=== PATIENT | male | born 1940 | race Caucasian/White ===

== ENCOUNTER 2019-08-23 15:53 | Emergency (ER) | payer OTHER ==
[~2019-08-23] VITALS: Ht 167.6 cm; Wt 77.1 kg
[2019-08-23 15:59] VITALS: BP_SYST 111
[2019-08-23] MEDS ORDERED: NACL 0.9% 1,000 ML IV ONE (16:32)
[2019-08-23 17:05] LABS: EOSINOPHILS # (AUTO) 0.1 K/uL (0.0-0.4); LYMPHOCYTES # (AUTO) 1.1 K/uL (1.0-5.5); MONOCYTES # (AUTO) 0.6 K/uL (0.0-1.0); PLATELET COUNT (AUTO) 190 K/uL (130-430)
[2019-08-23 17:08] LABS: ANION GAP 6 (5-15); CHLORIDE 102 mmol/L (98-107); CREATININE 0.99 mg/dL (0.55-1.30); GLUCOSE 95 mg/dL (70-99); POTASSIUM 3.5 mmol/L (3.5-5.1); SODIUM SERUM 136 mmol/L (136-145); UREA NITROGEN, BLOOD 20 mg/dL (8-21)
[2019-08-23 17:12] LABS: BASOPHILS % (AUTO) 0.4 % (0.0-2.0); EOSINOPHILS % (AUTO) 1.5 % (0.0-4.0); HEMATOCRIT 44.4 % (36-54); LYMPHOCYTES % (AUTO) 15.8 % (20.5-51.5); MEAN CORPUSCULAR HEMOGLOBIN 28 pg (27-31); MEAN CORPUSCULAR HGB CONC 34 % (32-36); MEAN CORPUSCULAR VOLUME 83 fL (79.0-98.0); NEUTROPHILS # (AUTO) 5.3 K/uL (1.8-7.7); NEUTROPHILS % (AUTO) 74.3 % (40.0-70.0); RED BLOOD CELL COUNT(AUTO) 5.37 MIL/uL (4.2-6.2); RED CELL DISTRIBUTION WIDTH 19.7 % (9.0-15.0); WHITE BLOOD COUNT (AUTO) 7.1 K/uL (4.8-10.8)
[2019-08-23 17:17] LABS: ALANINE AMINOTRANSFERASE 29 U/L (12-78); ALBUMIN 2.9 g/dL (3.4-4.8); ASPARTATE AMINOTRANSFERASE 20 U/L (10-37); TOTAL BILIRUBIN 1.7 mg/dL (0.0-1.0)
[2019-08-23] MEDS ORDERED: LISI-652 PO ×2 (17:38→17:41)
[2019-08-23] MEDS ORDERED: TAMS-11 PO (17:38)
[2019-08-23] MEDS ORDERED: APIX5TAB4 PO (17:38)
[2019-08-23] MEDS ORDERED: APIX5TAB PO (17:38)
[2019-08-23] MEDS ORDERED: NEBI10TA2 PO (17:41)
[2019-08-23] MEDS ORDERED: LEVO125T PO (17:41)
[2019-08-23 18:41] VITALS: BP_SYST 127
== END 2019-08-23 18:39 | disposition home or self-care (01) ==
LOC: SED 15:53
DX: R07.89 Other chest pain (principal); I48.91 Unspecified atrial fibrillation; I10 Essential (primary) hypertension; Z79.899 Other long term (current) drug therapy; Z87.891 Personal history of nicotine dependence
CPT/HCPCS: 36415; 71045; 74021; 80053; 84484; 85025; 93005; 99285

== ENCOUNTER 2020-01-09 10:02 | Observation (INO) | payer OTHER ==
[~2020-01-09] VITALS: Ht 170.2 cm; Wt 69.9 kg
[2020-01-09 10:02] VITALS: BP_SYST 131
[~2020-01-09 10:02] MED LIST: APIX5TAB PO; LEVO125T PO; LISI-652 PO; NEBI10TA2 PO; TAMS-11 PO
[2020-01-09] MEDS ORDERED: DILTIAZEM HCL 120 MG CAP.SR.24H PO ONE (10:15)
[2020-01-09 10:52] LABS: ANION GAP 9 (5-15); BASOPHILS % (AUTO) 0.4 % (0.0-2.0); CALCIUM 7.6 mg/dL (8.4-11.0); CHLORIDE 103 mmol/L (98-107); CREATININE 1.07 mg/dL (0.55-1.30); EOSINOPHILS # (AUTO) 0.1 K/uL (0.0-0.4); EOSINOPHILS % (AUTO) 1.3 % (0.0-4.0); GLUCOSE 116 mg/dL (70-99); HEMATOCRIT 45.4 % (36-54); HEMOGLOBIN 15.9 g/dL (14.0-18.0); LYMPHOCYTES # (AUTO) 1.2 K/uL (1.0-5.5); LYMPHOCYTES % (AUTO) 17.2 % (20.5-51.5); MEAN CORPUSCULAR HEMOGLOBIN 29 pg (27-31); MEAN CORPUSCULAR HGB CONC 35 % (32-36); MEAN CORPUSCULAR VOLUME 84 fL (79.0-98.0); MONOCYTES # (AUTO) 0.4 K/uL (0.0-1.0); MONOCYTES % (AUTO) 6.4 % (1.7-9.3); NEUTROPHILS # (AUTO) 5.2 K/uL (1.8-7.7); NEUTROPHILS % (AUTO) 74.7 % (40.0-70.0); PLATELET COUNT (AUTO) 177 K/uL (130-430); RED CELL DISTRIBUTION WIDTH 14.6 % (9.0-15.0); SODIUM SERUM 135 mmol/L (136-145); UREA NITROGEN, BLOOD 15 mg/dL (8-21)
[2020-01-09 10:56] LABS: ALANINE AMINOTRANSFERASE 18 U/L (12-78); ALBUMIN 2.9 g/dL (3.4-4.8); ASPARTATE AMINOTRANSFERASE 14 U/L (10-37); TOTAL BILIRUBIN 2.4 mg/dL (0.0-1.0)
[2020-01-09 11:04] LABS: POTASSIUM 2.7 mmol/L (3.5-5.1)
[2020-01-09] MEDS ORDERED: APIXABAN 2.5 MG TABLET PO ONE (11:15)
[2020-01-09] MEDS: POTASSIUM CHLORIDE 20 MEQ in 0.45% NACL 1,000 ML IV SCH (14:27)
[2020-01-09 14:31] VITALS: BP_SYST 146
[2020-01-09 16:00] VITALS: BP_SYST 135
[2020-01-09 20:00] VITALS: BP_SYST 125
[2020-01-09] MEDS ORDERED: APIXABAN 2.5 MG TABLET PO SCH (21:00)
[2020-01-09] MEDS: busPIRone HCL 5 MG TABLET PO SCH (21:43)
[2020-01-09] MEDS: TAMSULOSIN HCL 0.4 MG CAP PO SCH (21:44)
[2020-01-09] MEDS: APIXABAN 2.5 MG TABLET PO SCH (21:44)
[2020-01-09] MEDS: METOPROLOL TARTRATE 50 MG TABLET PO SCH (21:44)
[2020-01-09 23:14] LABS: BILIRUBIN,URINE NEGATIVE (NEGATIVE); BLOOD, URINE NEGATIVE (NEGATIVE); CLARITY/URINE CLEAR (CLEAR); COLOR,URINE YELLOW (YELLOW); GLUCOSE,URINE NEGATIVE (NEGATIVE); KETONES,URINE NEGATIVE (NEGATIVE); LEUKOCYTE ESTERASE ,URINE NEGATIVE (NEGATIVE); NITRITE, URINE NEGATIVE (NEGATIVE); PROTEIN URINE NEGATIVE (NEGATIVE); UROBILINOGEN,URINE 0.2 (0.2-1.0)
[2020-01-10] MEDS: POTASSIUM CHLORIDE 20 MEQ in 0.45% NACL 1,000 ML IV SCH ×2 (00:05→12:00)
[2020-01-10 01:29] VITALS: BP_SYST 94
[2020-01-10] MEDS ORDERED: LEVOTHYROXINE SODIUM 0.125 MG TABLET PO SCH (07:00)
[2020-01-10 07:40] LABS: ALANINE AMINOTRANSFERASE 17 U/L (12-78); ALBUMIN 2.7 g/dL (3.4-4.8); ANION GAP 5 (5-15); ASPARTATE AMINOTRANSFERASE 13 U/L (10-37); CALCIUM 7.8 mg/dL (8.4-11.0); CHLORIDE 101 mmol/L (98-107); CHOLESTEROL 133 mg/dL (<200); CREATININE 1.04 mg/dL (0.55-1.30); GLUCOSE 94 mg/dL (70-99); HDL CHOLESTEROL 34 mg/dL (>45); LDL CHOLESTEROL 72 mg/dL (<100); POTASSIUM 3.9 mmol/L (3.5-5.1); SODIUM SERUM 134 mmol/L (136-145); THYROID STIMULATING HORMONE 3.25 uIu/mL (0.34-4.82); TOTAL BILIRUBIN 1.9 mg/dL (0.0-1.0); TRIGLYCERIDES 158 mg/dL (30-150); UREA NITROGEN, BLOOD 16 mg/dL (8-21)
[2020-01-10 08:00] VITALS: BP_SYST 149
[2020-01-10] MEDS: TAMSULOSIN HCL 0.4 MG CAP PO SCH (08:08)
[2020-01-10] MEDS: busPIRone HCL 5 MG TABLET PO SCH (08:08)
[2020-01-10] MEDS: METOPROLOL TARTRATE 50 MG TABLET PO SCH (08:09)
[2020-01-10] MEDS: APIXABAN 2.5 MG TABLET PO SCH (08:12)
[2020-01-10 11:33] VITALS: BP_SYST 141
[2020-01-10 13:22] LABS: BILIRUBIN,URINE NEGATIVE (NEGATIVE); BLOOD, URINE NEGATIVE (NEGATIVE); CLARITY/URINE CLEAR (CLEAR); COLOR,URINE YELLOW (YELLOW); GLUCOSE,URINE NEGATIVE (NEGATIVE); KETONES,URINE NEGATIVE (NEGATIVE); LEUKOCYTE ESTERASE ,URINE NEGATIVE (NEGATIVE); NITRITE, URINE NEGATIVE (NEGATIVE); PH,URINE 5.5 (5.0-8.0); PROTEIN URINE NEGATIVE (NEGATIVE); UROBILINOGEN,URINE 0.2 (0.2-1.0)
[2020-01-10 15:53] VITALS: BP_SYST 128; BP_SYST 141
[2020-01-11 13:06] LABS: % FREE PSA 35.3 % (.); FREE PSA 0.6 ng/mL; PROSTATE SPECIFIC AG TOTAL 1.7 ng/mL (0.0-4.0)
== END 2020-01-10 17:30 | disposition home or self-care (01) ==
LOC: SED 10:02 → STU 12:06
PROVIDERS: ADMIT Internal Medicine Hospice and Palliative Medicine; ATTEND Internal Medicine Hospice and Palliative Medicine
DX: I48.20 Chronic atrial fibrillation, unspecified (principal); E87.6 Hypokalemia; R07.89 Other chest pain; I10 Essential (primary) hypertension; E78.5 Hyperlipidemia, unspecified; N40.1 Benign prostatic hyperplasia with lower urinary tract symptoms; R32 Unspecified urinary incontinence; F41.8 Other specified anxiety disorders; E03.9 Hypothyroidism, unspecified; F25.9 Schizoaffective disorder, unspecified; Z90.49 Acquired absence of other specified parts of digestive tract; Z87.891 Personal history of nicotine dependence; Z86.73 Personal history of transient ischemic attack (TIA), and cerebral infarction without residual deficits; Z79.01 Long term (current) use of anticoagulants; Z79.890 Hormone replacement therapy; Z98.62 Peripheral vascular angioplasty status; Z79.899 Other long term (current) drug therapy
CPT/HCPCS: 36415 ×2; 80053 ×2; 80061; 81003 ×2; 83880; 84153; 84443; 84484 ×2; 85025; 85379; 87040; 93306; 96365; 96366 ×2; 99291; G0378; J3480